=== PATIENT | female | born 1960 | race Caucasian/White ===

== ENCOUNTER 2023-07-12 11:57 | Emergency (ER) | payer MEDICARE, MEDICAID, SELFPAY ==
[2023-07-12 11:58] VITALS: BP 170/68; PULSE 87; RESP 18; TEMP 36.6; O2SAT 97
--- NOTE | 2023-07-12 12:56 | ED.GENADULT ---
HPI - General Adult General Chief complaint: Nausea/Vomiting/Diarrhea Stated complaint: diarrhea x1 week Time Seen by Provider: 07/12/23 12:27 History of Present Illness HPI narrative: 62-year-old female presents for evaluation of brown soft and watery diarrhea x1 week. No fever, bleeding, abdominal pain. She has been drinking extra water to prevent dehydration. No sick contacts. Related Data Home Medications Medication Instructions Recorded Confirmed albuterol sulfate 90 mcg/actuation 2 puff inhalation Q4H PRN 12/30/19 aerosol inhaler (Ventolin HFA) aspirin 81 mg tablet 81 mg PO DAILY 12/30/19 Allergies Allergy/AdvReac Type Severity Reaction Status Date / Time ciprofloxacin Allergy Unknown Rash Verified 07/12/23 12:07 codeine Allergy Unknown Rash Verified 07/12/23 12:07 latex Allergy Unknown Rash Verified 07/12/23 12:07 naproxen Allergy Unknown Gastrointestinal Verified 07/12/23 12:07 Upset Review of Systems Review of Systems: CONSTITUTIONAL: Denies fever, chills, or sweats. EYES: Denies visual changes, redness, or discharge. ENT: Denies rhinorrhea, congestion, sore throat, or otalgia. CARDIOVASCULAR: Denies chest pain, palpitations, or edema. RESPIRATORY: Denies cough or dyspnea. GASTROINTESTINAL: Denies abdominal pain, nausea, vomiting, or diarrhea. GENITOURINARY: Denies dysuria or hematuria. SKIN: Denies rash or itching. MUSCULOSKELETAL: Denies back pain, joint pain, or myalgia. NEUROLOGIC: Denies headache, numbness, or weakness. PSYCHIATRIC: Denies anxiety or depression. [facility] Past Medical History Medical History (Updated 07/12/23 @ 13:18 by Enzo Chi DO) HTN (hypertension) Vitamin D deficiency disease Family History Family History Sibling Family history of cardiovascular disease Mother Family history of lung disease, Onset Age: 74 Other Cerebrovascular accident Diabetes mellitus Family history of allergic disorder Hypertension Social History Social History Smoking status: Current every day smoker Exam Narrative: GENERAL: Well-appearing, well-nourished, and in no acute distress. HEAD: Normocephalic, atraumatic. EYES: PERRLA and EOMI. ENT: Nares clear, no rhinorrhea or epistaxis. Mucous membranes moist. NECK: Supple. CHEST: Clear to auscultation. No respiratory distress. HEART: Regular rate and rhythm. No murmur heard. Normal peripheral pulses. ABDOMEN: Soft, nontender, nondistended, normal active bowel sounds. Absolutely no abdominal tenderness EXTREMITIES: Normal range of motion. No edema. SKIN: Warm, dry, no rash. NEURO: No focal deficits. Alert and oriented x3. PSYCH: Normal mood and affect. Course Vital Signs Vital signs: Vital Signs Temperature 97.9 F 07/12/23 11:58 Pulse Rate 87 07/12/23 11:58 Respiratory Rate 18 07/12/23 11:58 Blood Pressure 170/68 H 07/12/23 11:58 Pulse Oximetry 97 07/12/23 11:58 Oxygen Delivery Room Air 07/12/23 11:58 Temperature 97.9 F 07/12/23 11:58 Pulse Rate 87 07/12/23 11:58 Respiratory Rate 18 07/12/23 11:58 Blood Pressure 170/68 H 07/12/23 11:58 Pulse Oximetry 97 07/12/23 11:58 Oxygen Delivery Room Air 07/12/23 11:58 Medical Decision Making MDM Narrative Medical decision making narrative: Patient's abdomen is soft without significant pain or signs of surgical abdomen on serial exams. Lab and x-ray evaluations are reviewed and patient is felt to be a reasonable candidate for outpatient management. Patient was instructed as to limitations of x-ray and laboratory evaluation and encouraged to return to ED or primary physician for repeat exam in 12 hours if continued or worsening pain Absolutely normal physical exam. No fever, no abdominal pain. Patient has had diarrhea for 1 week. Past medical history of GERD, hiatal hernia and she bojorquez
[2023-07-12] MEDS: DICYCLOMINE HCL 10 MG CAPSULE 20 MG PO (13:09)
[2023-07-12] MEDS: ONDANSETRON HCL ODT 4 MG TABLET PO (13:10)
== END 2023-07-12 14:26 | disposition home or self-care (01) ==
PROVIDERS: Emergency Provider Emergency Medicine; PCP Family Medicine
DX: R19.7 Diarrhea, unspecified (principal); I10 Essential (primary) hypertension; E55.9 Vitamin D deficiency, unspecified
CPT/HCPCS: 99283; A9270

== ENCOUNTER 2023-08-07 07:44 | Outpatient (CLI) | payer MEDICARE, MEDICAID, SELFPAY ==
--- NOTE | ~2023-08-07 | NM_ITS ---
EXAM: NM gastric emptying study DATE: 08/07/2023 12:31 INDICATION: Dysphagia, unspecified. TECHNIQUE: A gastric emptying study was performed using the methodology of Thomas ROSAS, et al. J Nucl Med 2007; 48:568-572. The patient was given a meal consisting of 2 scrambled eggs labeled with 0.977 mCi Tc-99m sulfur colloid, 2 slices of toast, two packages of jam, and approximately 120 mL of water . Simultaneous anterior and posterior 1-min images of the abdomen were obtained with the patient supi ne at multiple time points over a total period of 4 hours. The geometric mean of anterior and posteri or views was determined, and the percentage retention was calculated for each time point. COMPARISON: CT abdomen and pelvis 05/29/2018 FINDINGS: Gastric retention of the radiotracer-labeled meal was 73%, 56%, and 12% at the 1-hour, 2-h our, and 4-hour time points, respectively. With this technique, apparent rapid gastric emptying is scott ggested by <30% gastric retention at 1 hour. Delayed gastric emptying is defined by gastric retention of >90% at 1 hour, >60% retention at 2 hours, or >10% retention at 4 hours. IMPRESSION: 1. Delayed gastric emptying. Reviewed, dictated and finalized at location A.
== END 2023-08-07 07:45 | disposition home or self-care (01) ==
PROVIDERS: PCP Family Medicine; Visit Provider Nurse Practitioner Family
DX: K21.9 Gastro-esophageal reflux disease without esophagitis (principal); K30 Functional dyspepsia
CPT/HCPCS: 78264; A9541

== ENCOUNTER 2023-10-08 01:12 | Day surgery (SDC) | payer MEDICARE, MEDICAID, SELFPAY ==
[2023-09-19 12:51] VITALS: BMI 28.0
[2023-10-08 07:34] VITALS: BP 147/68; PULSE 73; RESP 18; TEMP 36.3; O2SAT 98; BMI 27.5
[2023-10-08] MEDS: LACTATED RINGERS 1,000 ML 150 ML IV CONT (07:52)
--- NOTE | 2023-10-08 08:39 | WPDANESEPPF ---
Anes - Initial Pre Proc Eval Procedure: Operation Date: 10/08/23 09:00 Proposed Procedures p Esophagogastroduodenoscopy - Phu Scherer MD Date/Time: 10/08/23 08:39 Surgeon: Phu Scherer MD Pre Op Diagnosis: Dysphagia unspecified, nausea with vomiting unspec Patient Data Age: 63 Gender: F Height: 1.63 m Weight: 72.8 kg Last Vital Signs Temp 97.3 F L 10/08/23 07:34 Pulse 73 10/08/23 07:34 Resp 18 10/08/23 07:34 BP 147/68 H 10/08/23 07:34 Pulse Ox 98 10/08/23 07:34 O2 Del Method Room Air 10/08/23 07:34 Allergies Allergy/AdvReac Type Severity Reaction Status Date / Time ciprofloxacin Allergy Unknown Rash Verified 10/08/23 07:41 codeine Allergy Unknown Rash Verified 10/08/23 07:41 latex Allergy Unknown Rash Verified 10/08/23 07:41 naproxen AdvReac Unknown Gastrointestinal Verified 10/08/23 07:41 Upset Home Medications Medication Instructions Recorded Confirmed Type ipratropium 0.5 mg-albuterol 3 mg 3 ml inhalation .COMPLEX #1,080 mL 09/15/19 10/08/23 Rx (2.5 mg base)/3 mL nebulization soln aspirin 81 mg tablet 81 mg PO DAILY 12/30/19 10/08/23 History pantoprazole 40 mg tablet,delayed See Rx Instructions .Route 10/24/20 10/08/23 Rx release .COMPLEX #90 tabs albuterol sulfate 90 mcg/actuation See Rx Instructions .Route 02/27/21 10/08/23 Rx aerosol inhaler .COMPLEX #54 grams dicyclomine 10 mg capsule 10 mg PO BID #20 caps 07/12/23 10/08/23 Rx ondansetron 4 mg disintegrating 4 mg PO Q8H #10 tabs 07/12/23 10/08/23 Rx tablet famotidine 40 mg tablet 40 mg PO QHS #30 tabs 07/22/23 10/08/23 Rx lisinopril 5 mg tablet 40 mg PO DAILY 07/22/23 10/08/23 History metoclopramide HCl 10 mg tablet 5 mg PO .ac nausea and vomiting 08/08/23 10/08/23 Rx #90 tabs Patient hx anesthesia problems: none Family hx anesthesia problems: none Results Review: All pre-operative results and documents have been reviewed as part of the pre-operative evaluation. [facility] Past Medical History Medical History (Updated 07/22/23 @ 15:01 by Sabra Drake APRN) HTN (hypertension) Vitamin D deficiency disease Family History Family History Sibling Family history of cardiovascular disease Mother Family history of lung disease, Onset Age: 74 Other Cerebrovascular accident Diabetes mellitus Family history of allergic disorder Hypertension Social History Social History Smoking packs per day: 0.5 Smoking cigarettes per day: 10.0 Years smoked: 50 Smoking pack-years: 25.00 Smoking status: Current every day smoker Tobacco type: cigarettes Alcohol intake: never Substance use type: marijuana Other substance usage details: daily marijuana smoker Living arrangements: with family Spiritual care concerns: No Anes - Eval Final PreProcedure Day of Procedure 10/08/23 08:39 Patient weight: normal Heart: regular rate and rhythm Lungs: clear to auscultation Airway: Mallampati scale class II Neurological: alert and oriented Last oral intake: >/= 8 hours ASA classification: III Emergent: no Anesthetic plan: proceed Anesthesia type and monitoring: general GIVS and standard monitoring Results Review: All pre-operative results and documents have been reviewed as part of the pre-operative evaluation. Informed Consent: The patient's anesthetic plan and its attendant risks and benefits were discussed with the patient/family/POA. Questions were solicited and answers provided to the satisfaction of the patient/family/POA.
--- NOTE | 2023-10-08 08:40 | PM.HPGS ---
History of Present Illness History of Present Illness Consent: Risks, benefits, and alternatives have been discussed and questions answered. Patient agrees to proceed with procedure. Chief complaint: Dysphagia unspecified, nausea with vomiting unspec Narrative: Chuyita Hill is a 63 year old female with dysphagia and gerd on ppi, last EGD 2021 at another hospital. Review of Systems Review of Systems: All systems reviewed & are unremarkable except as noted in HPI and below PMFSH Past Medical History Medical History (Updated 07/22/23 @ 15:01 by Sabra Drake APRN) HTN (hypertension) Vitamin D deficiency disease Family History Family History Sibling Family history of cardiovascular disease Mother Family history of lung disease, Onset Age: 74 Other Cerebrovascular accident Diabetes mellitus Family history of allergic disorder Hypertension Social History Social History Smoking packs per day: 0.5 Smoking cigarettes per day: 10.0 Years smoked: 50 Smoking pack-years: 25.00 Smoking status: Current every day smoker Tobacco type: cigarettes Alcohol intake: never Substance use type: marijuana Other substance usage details: daily marijuana smoker Living arrangements: with family Spiritual care concerns: No Meds Home Medications and Allergies Home Medications Medication Instructions Recorded Confirmed Type ipratropium 0.5 mg-albuterol 3 mg 3 ml inhalation .COMPLEX #1,080 mL 09/15/19 10/08/23 Rx (2.5 mg base)/3 mL nebulization soln aspirin 81 mg tablet 81 mg PO DAILY 12/30/19 10/08/23 History pantoprazole 40 mg tablet,delayed See Rx Instructions .Route 10/24/20 10/08/23 Rx release .COMPLEX #90 tabs albuterol sulfate 90 mcg/actuation See Rx Instructions .Route 02/27/21 10/08/23 Rx aerosol inhaler .COMPLEX #54 grams dicyclomine 10 mg capsule 10 mg PO BID #20 caps 07/12/23 10/08/23 Rx ondansetron 4 mg disintegrating 4 mg PO Q8H #10 tabs 07/12/23 10/08/23 Rx tablet famotidine 40 mg tablet 40 mg PO QHS #30 tabs 07/22/23 10/08/23 Rx lisinopril 5 mg tablet 40 mg PO DAILY 07/22/23 10/08/23 History metoclopramide HCl 10 mg tablet 5 mg PO .ac nausea and vomiting 08/08/23 10/08/23 Rx #90 tabs Allergies Allergy/AdvReac Type Severity Reaction Status Date / Time ciprofloxacin Allergy Unknown Rash Verified 10/08/23 07:41 codeine Allergy Unknown Rash Verified 10/08/23 07:41 latex Allergy Unknown Rash Verified 10/08/23 07:41 naproxen AdvReac Unknown Gastrointestinal Verified 10/08/23 07:41 Upset Vital Signs Vital Signs - 24 hr 10/08/23 07:34 Temperature 97.3 F L Pulse Rate 73 Respiratory Rate 18 Blood Pressure 147/68 H Pulse Oximetry 98 Oxygen Delivery Room Air Exam Const: General: comfortable and no acute distress HENMT: Face/Nose/Sinus: Normal nares present Eyes: General: appearance normal, both eyes and all related structures Neck: Neck: no JVD Resp: Auscultation: clear to auscultation bilaterally Cardio: Rate: regular rate Rhythm: regular rhythm GI: Inspection: non-distended GI Palp: Yes Soft to palpation Skin: General skin exam: normal color Neuro: General: gait normal Speech: normal speech Extrem: General: normal to inspection Psych: Mental Status: mental status grossly normal Assessment and Plan Assessment and plan (1) Dysphagia: Qualifiers: Dysphagia type: esophageal phase Qualified Code(s): R13.19 - Other dysphagia Code(s): R13.10 - Dysphagia, unspecified Status: Acute Assessment and Plan: egd to assess, history of esophageal dilatation in the past (2) GERD (gastroesophageal reflux disease): Qualifiers: Esophagitis presence: without esophagitis Qualified Code(s): K21.9 - Gastro-esophageal reflux disease without esophagitis Code(s):
[2023-10-08 08:54] VITALS: BP 99/74; PULSE 88; RESP 18; O2SAT 97
[2023-10-08 09:04] VITALS: BP 101/64; PULSE 80; RESP 18; O2SAT 95
== END 2023-10-08 09:20 | disposition home or self-care (01) ==
PROVIDERS: PCP Family Medicine; Referring Provider Nurse Practitioner Family; Visit Provider Internal Medicine Gastroenterology
PROC: 0DJ08ZZ Inspection of Upper Intestinal Tract, Via Natural or Artificial Opening Endoscopic (ICD-10-PCS; CPT 43235; principal; 2023-10-08 09:00)
DX: K29.50 Unspecified chronic gastritis without bleeding (principal); K44.9 Diaphragmatic hernia without obstruction or gangrene; K21.9 Gastro-esophageal reflux disease without esophagitis; I10 Essential (primary) hypertension; Z79.82 Long term (current) use of aspirin; Z79.51 Long term (current) use of inhaled steroids; F17.210 Nicotine dependence, cigarettes, uncomplicated; F12.90 Cannabis use, unspecified, uncomplicated
CPT/HCPCS: 43239; 88305; J2001; J2704; J7120

== ENCOUNTER 2024-12-18 11:06 | Emergency (ER) | payer MEDICARE, MEDICAID, SELFPAY ==
[2024-12-18 11:19] VITALS: BP 152/69; PULSE 78; RESP 20; TEMP 36.5; O2SAT 98
[2024-12-18 11:26] LABS: EDSTREPNEGPOS1 Negative (Negative)
--- NOTE | 2024-12-18 11:43 | ED.URI ---
HPI - URI/Sore Throat General Chief Complaint: Upper Respiratory Infection Stated Complaint: Sore Throat Time Seen by Provider: 12/18/24 11:30 Source: patient and RN notes reviewed Mode of arrival: ambulatory Limitations: no limitations History of Present Illness HPI Narrative: 64-year-old female presents Express Care complaining of sore throat for 2 days. Patient denies any other upper respiratory symptoms. Patient denies any fevers, aches, chills, nausea, vomiting, difficulty clearing secretions, dysphagia, cough, chest pain, difficulty breathing, or any other symptoms. Patient has been using Tylenol, ibuprofen, throat lozenges to help with the sore throat. Related Data Home Medications ?Medication ?Instructions ?Recorded ?Confirmed ?Last Taken ?Type aspirin 81 mg tablet 81 mg PO DAILY 12/30/19 12/18/24 Unknown History lisinopril 5 mg tablet 40 mg PO DAILY 07/22/23 12/18/24 Unknown History Vitamin C 12/18/24 Unknown History Vitamin D3 12/18/24 Unknown History budesonide 160 mcg-glycopyr 9 inh inhalation 12/18/24 Unknown History mcg-formot 4.8 mcg/actuation HFA inhaler (Breztri Aerosphere) rosuvastatin 5 mg tablet mg 12/18/24 Unknown History vitamin B55-fdsxm acid 12/18/24 Unknown History Allergies Allergy/AdvReac Type Severity Reaction Status Date / Time ciprofloxacin Allergy Unknown Rash Verified 12/18/24 11:09 codeine Allergy Unknown Rash Verified 12/18/24 11:09 latex Allergy Unknown Rash Verified 12/18/24 11:09 naproxen AdvReac Unknown Gastrointestinal Verified 12/18/24 11:09 Upset Review of Systems Review of Systems: CONSTITUTIONAL: Denies fever, chills, or sweats. EYES: Denies visual changes, redness, or discharge. ENT: Denies rhinorrhea, congestion, dysphagia, difficulty clearing secretions, or otalgia. Positive for sore throat. CARDIOVASCULAR: Denies chest pain, palpitations, or edema. RESPIRATORY: Denies cough or dyspnea. GASTROINTESTINAL: Denies abdominal pain, nausea, vomiting, or diarrhea. GENITOURINARY: Denies dysuria or hematuria. SKIN: Denies rash or itching. MUSCULOSKELETAL: Denies back pain, joint pain, or myalgia. NEUROLOGIC: Denies headache, numbness, or weakness. PSYCHIATRIC: Denies anxiety or depression. All other systems reviewed are negative, except as documented in HPI. [facility] Past Medical History Medical History Vitamin D deficiency disease HTN (hypertension) Family History Family History Sibling Family history of cardiovascular disease Mother Family history of lung disease, Onset Age: 74 Other Cerebrovascular accident Diabetes mellitus Family history of allergic disorder Hypertension Social History Social History Smoking packs per day: 0.5 Smoking cigarettes per day: 10.0 Years smoked: 50 Smoking pack-years: 25.00 Smoking status: Current every day smoker Tobacco type: cigarettes Alcohol intake: never Substance use type: marijuana Other substance usage details: daily marijuana smoker Living arrangements: with family Spiritual care concerns: No Comments At the time of my signature, I reviewed and agree with the nursing past medical, surgical, social, and family history. There is no relevant family history pertinent to the patient complaint. Exam Narrative: GENERAL: This is a well-nourished, well-developed adult, in no apparent distress. They are non ill-appearing, nontoxic appearing. HEAD: normocephalic, atraumatic. EYES: Sclera clear/white. Conjunctiva normal. Vision is grossly intact. Extraocular movements intact EARS: External ears normal, auditory canals clear and without drainage, TMs normal without perforation. Hearing grossly intact. NOSE: External nose normal with no obvious nasal discharge, nasal turbinates without redness, no rhinorrhea. THROAT: Mucous membranes moist, posterior pharynx is erythematous with white patches ulcerations present. White patches in ulcerations present to the soft palate. Tonsils erythematous, 2+ with exudate present. Uvula midline. OROPHARYNX: No other suspicious lesions, rash, ulcerations present throughout the hard palate, oral or buccal mucosa. No suspicious lesions or ulcerations to lips. Tongue is normal. Teeth intact. For gross tooth decay. NECK: Neck supple, non-tender without lymphadenopathy, masses or thyromegaly. CARDIOVASCULAR: Regular rate and rhythm without murmurs, gallops, or rubs. RESPIRATORY: Clear to auscultation. Breath sounds equal bilaterally. No wheezes, rales, or rhonchi. SKIN: warm, Dry, intact with no suspicious lesions or rash, good texture and turgor. NEURO: awake, alert, and oriented to person, place and time. There were no obvious focal neurologic abnormalities. EXTREMITIES: No joint tenderness, effusion, or edema noted. BACK: Nontender without deformity. No CVA tenderness. Course Course Emergency Course: Portions of this record may have been created with voice recognition software Level of Care: Express Care Visit Vital Signs Vital signs: Vital Signs Temperature 97.7 F 12/18/24 11:19 Pulse Rate 78 12/18/24 11:19 Respiratory Rate 20 12/18/24 11:19 Blood Pressure 152/69 H 12/18/24 11:19 Pulse Oximetry 98 12/18/24 11:19 Oxygen Delivery Room Air 12/18/24 11:19 Temperature 97.7 F 12/18/24 11:19 Pulse Rate 78 12/18/24 11:19 Respiratory Rate 20 12/18/24 11:19 Blood Pressure 152/69 H 12/18/24 11:19 Pulse Oximetry 98 12/18/24 11:19 Oxygen Delivery Room Air 12/18/24 11:19 Reviewed MDM - URI/Sore Throat MDM Narrative Medical decision making narrative: Rapid strep negative. A throat culture is pending. Herpes cultures pending as well. Patient denies any recent sexual contact her history of herpes. Patient has known exposures strep throat in the home. Patient denies any exposure [id number] however she takes care of a lot of grand kids at home. There is clinical concern for strep pharyngitis. Could be [id number], herpes cannot be excluded, however patient adamantly denies any concerns STIs. Patient would not like to start any treatment for herpes and would like to wait for the results. We will go ahead and treat with amoxicillin. Discussed physical exam findings. Advised supportive measures and signs/symptoms to go to the ER. Pt is appropriate for outpt treatment and f/u. Differential Diagnosis Differential diagnosis: Likely upper respiratory infection, sinusitis, viral infection, pharyngitis and other (Herpes, herpangina, [id number]) Lab Data Attestation: I reviewed the patient's lab results. Labs: Lab Results 12/18/24 Range/Units 11:16 POC Grp A Strep Screen Negative (Negative) Critical Care Time Critical Care Time Critical Care Time: No Discharge Plan Discharge Clinical Impression: Pharyngitis Qualifiers: Pharyngitis/tonsillitis etiology: unspecified etiology Qualified Code(s): J02.9 - Acute pharyngitis, unspecified Patient Disposition: Home Condition: Stable Instructions: Antibiotic Form, Pharyngitis (ED) Additional Instructions: Your rapid strep was negative today. A throat culture will be sent off and if it is positive for strep you will be contacted. Throat culture was sent off for herpes, when that is resulting you will be contacted of those results. Please take the amoxicillin as prescribed until gone. ?You will be contagious for 24 hours after starting the medication. ?After 24 hours on antibiotics throw tooth brush away and start using a new one. Wash your sheets and cup/water bottle that is used daily. Do not share drinks. Take Tylenol or Ibuprofen for pain or fever, if able. ?Rest and stay hydrated. ?Follow up with your PCP in 3 days if symptoms are not improving. ?Go to the ER immediately if you develop worsening symptoms such as shortness of breath, vomiting, chest pains, difficulty swallowing. ? Patient Language: Luxembourgish Prescriptions: New amoxicillin 500 mg tablet 500 mg PO Q12H 10 Days Qty: 20 0RF No Action rosuvastatin 5 mg tablet Breztri Aerosphere 160-9-4.8 mcg/actuation HFA aerosol inhaler INHALATION Vitamin D3 vitamin B26-haujw acid Vitamin C aspirin 81 mg tablet 81 mg PO DAILY lisinopril 5 mg tablet 40 mg PO DAILY ipratropium-albuterol 0.5 mg-3 mg(2.5 mg base)/3 mL solution for nebulization 3 ml INHALATION .COMPLEX Qty: 1080 1RF Rx Instructions: 3 mL inhalation use 1 vial nebulizer four times daily ; pantoprazole 40 mg tablet,delayed release (DR/EC) See Rx Instructions .ROUTE .COMPLEX Qty: 90 2RF Dose Instruction: TAKE 1 TABLET BY MOUTH DAILY Rx Instructions: TAKE 1 TABLET BY MOUTH DAILY albuterol sulfate 90 mcg/actuation HFA aerosol inhaler See Rx Instructions .ROUTE .COMPLEX Qty: 54 3RF Dose Instruction: INHALE 1 PUFF BY MOUTH EVERY 4 HOURS Rx Instructions: INHALE 1 PUFF BY MOUTH EVERY 4 HOURS Follow-up/Referrals: Todd,Margo, DO [Primary Care Provider, Unknown] Time of Disposition: 11:41
[2024-12-21 07:08] LABS: HSV-1 DNA Positive (Negative); HSV-2 DNA Negative (Negative)
== END 2024-12-18 11:42 | disposition home or self-care (01) ==
PROVIDERS: PCP Family Medicine
DX: J02.9 Acute pharyngitis, unspecified (principal); F17.210 Nicotine dependence, cigarettes, uncomplicated; F12.90 Cannabis use, unspecified, uncomplicated; I10 Essential (primary) hypertension; E55.9 Vitamin D deficiency, unspecified; Z79.82 Long term (current) use of aspirin
CPT/HCPCS: 86615; 87081; 87529; 87880; 99213; G0463